=== PATIENT | male | born 1955 | race Caucasian/White ===

== ENCOUNTER 2024-07-18 15:43 | Emergency (ER) | payer MEDICARE, OTHER, SELFPAY ==
[2024-07-18 15:59] VITALS: BP 135/98
[2024-07-18 16:21] LABS: % Basophils 0.2 % (0-2); % Eosinophils 0.4 % (0-6); % Immature Granulocytes 0.2 % (0-0.5); % Lymphocytes 9.1 % (20.5-51.1); % Monocytes 6.8 % (1.7-9.3); % Neutrophils 83.3 % (42.2-75.2); Absolute Eosinophils 0.1 10^3/uL (0-0.7); Absolute Lymphocytes 1.5 10^3/uL (1.2-3.4); Absolute Monocytes 1.1 10^3/uL (0.1-0.6); Absolute Neutrophils 13.6 10^3/uL (1.4-6.5); Hematocrit 36.6 % (39.0-52.0); Mean Corp Hgb Conc. 35.5 g/dL (33.0-37.0); Mean Corpuscular Volume 87.1 fL (80.0-94.0); Mean Platelet Volume 8.5 fL (7.4-10.4); Nucleated Red Blood Cells % 0 % (-); Platelet Count 250 10^3/uL (130-400); Red Cell Dist. Width 13.6 % (11.5-14.5); White Blood Cell Count 16.3 10^3/uL (4.8-10.8)
[2024-07-18 16:43] LABS: ALT (SGPT) 44 U/L (0-50); AST (SGOT) 41 U/L (17-59); Albumin 4.7 g/dl (3.5-5.0); Alkaline Phosphatase 88 U/L (38-126); Blood Urea Nitrogen 20 mg/dl (9-20); Calcium 9.3 mg/dl (8.4-10.2); Carbon Dioxide 27 mmol/L (22-30); Chloride 97 mmol/L (98-107); Glucose 114 mg/dl (70-99); Potassium 4.4 mmol/L (3.5-5.1); Sodium 137 mmol/L (135-145); Total Bilirubin 0.9 mg/dl (0.2-1.3); Total Protein 7.1 g/dl (6.3-8.2); eGFR > 60.00
--- NOTE | 2024-07-18 17:45 | ED.GENMED ---
History of Present Illness
General
Chief Complaint: Abdominal Symptoms
Source: patient
Time Seen by Provider: 07/18/24 17:31
History of Present Illness
History of Present Illness:
69-year-old male presents to the emergency room complaining of abdominal fullness, constipation and today inability to pass urine. Patient first noticed some difficulty passing stool 2 to 3 days ago. He noted today that he could not pass urine at
all. He feels significant fullness in his lower abdomen. When asked about how he urinates normally the patient does endorse issues with starting his urinary stream. He does not always feel fully relieved when he urinates. Patient attempted to
give himself an enema at home but felt like most of the enema ended up on the floor. He also took a stool softener. Patient has not had any nausea or vomiting. He denies any previous abdominal operations.
Past History
Past History
ED Past Medical History: None
ED Past Surgical History: None
Social History
Living: with family
Phy Exam
Physical Exam
Physical Exam:
General: Awake, Alert, Oriented X3. No acute distress.
Vitals: unremarkable
Head: Atraumatic
Eyes: Pupils equal, EOMI
Throat: Airway intact, no exudates
Neck: Trachea midline
Lungs: Clear and equal b/l
Heart: Regular rate, no murmurs
Abd: Soft, palpable bladder with significant lower abdominal distention, No pulsatile mass
Neuro: Nonfocal
Skin: Warm, dry, no rash
Extremities: pulses equal b/l, no edema
Course
Orders/Labs/Results
Orders:
Orders
07/18/24 16:15
Complete Blood Count/With Diff Urgent
Comprehensive Metabolic Panel Urgent
07/18/24 17:55
Soliman Placement- Treatment ONCE
Reason for insertion: Outlet obstruction
07/18/24 17:56
Urinalysis Reflex To Culture Urgent
Date Specimen was Collected: 07/18/24
Time Specimen was Collected: 17:55
07/18/24 22:29
Lidocaine 2% [Lidocaine Uro-Jet 2%] 1 syringe .ROUTE .STK-MED ONE
07/18/24 22:31
Lidocaine 2% [Lidocaine Uro-Jet 2%] 1 syringe TOPICAL NOW STA
Abnormal Lab Results
07/18/24
16:15
WBC 16.3 H 10^3/uL
(4.8-10.8)
RBC 4.20 L 10^6/uL
(4.70-6.10)
Hct 36.6 L %
(39.0-52.0)
Absolute Neuts (auto) 13.6 H 10^3/uL
(1.4-6.5)
Absolute Monos (auto) 1.1 H 10^3/uL
(0.1-0.6)
Neutrophils % 83.3 H %
(42.2-75.2)
Lymphocytes % 9.1 L %
(20.5-51.1)
Chloride 97 L mmol/L
(98-107)
Glucose 114 H mg/dl
(70-99)
07/18/24 16:15
07/18/24 16:15
Vital Signs
Initial and Last Documented VS:
Initial Vital Signs
Temp Pulse Resp BP Pulse Ox
98.8 F 97 18 135/98 99
07/18/24 15:59 07/18/24 15:59 07/18/24 15:59 07/18/24 15:59 07/18/24 15:59
Last Documented Vital Signs
Temp Pulse Resp BP Pulse Ox
98.8 F 81 16 144/72 100
07/18/24 15:59 07/18/24 18:05 07/18/24 18:05 07/18/24 18:05 07/18/24 18:05
MDM/Problems Addressed
Differential Diagnosis Includes:
Constipation, bladder outlet obstruction direction with sigmoid colon be mechanically obstructed by the bladder, mass
MDM/Problems Addressed:
Bladder scan shows that the patient has a significant amount of retained urine. Soliman catheter placed and about 2 L of urine were evidently obtained. Patient did have some hematuria immediately following catheter placement. This began to clear
and at the time of discharge his urine was just a light pink. He did not pass any clots. He was irrigated by hand and did not have any clots. After his bladder outlet obstruction was relieved the patient was able to defecate. His abdominal
discomfort is now completely resolved. Will start the patient on Flomax. Talk to follow with urology.
*Pulse Oximetry
Patient hypoxic: no
*Critical Care Note
Total Time (30-74mins, 75-104mins- exclusive of procedures): Not Applicable
ED Attending Note
-
Portions of this chart may have been created with voice recognition software.� Occasional wrong word or��sound alike� substitutions may have occurred due to the inherent limitations of voice recognition software.
Discharge Plan
Departure
Patient Disposition: Home (Routine Discharge)
Date of Disposition: 07/18/24
Time of Disposition: 21:22
Patient with high blood pressure during this ER visit?: Yes
Condition: Good
Discharge Problem:
Bladder outlet obstruction, Hematuria, Constipation
Instructions: Constipation, Adult (DC), How to Care for Your Soliman Catheter, Male, Blood in Urine (Hematuria), Adult ED
Prescriptions:
New
tamsulosin [Flomax] 0.4 mg capsule
0.4 mg PO HS Qty: 30 0RF
Referrals:
Maxime Bowles MD [Active] -
Mack Francisco MD [Family Provider] -
Activity Restrictions/Additional Instructions:
Call Dr. Bowles's office tomorrow for an appointment.
Interventions
Interventions:
*Risk Screen - Suicide Last Done: 07/18/24 17:36
*General Assessment Last Done: 07/18/24 16:03
*Neglect/Abuse Screening Last Done: 07/18/24 17:36
*ED COVID-19 Vaccine History Last Done: 07/18/24 17:35
VT-Dkltwz-Mchtoeblwn Assessment Last Done: 07/18/24 17:36
Discharge Date and Time
Print Language: [place] IRISH
[2024-07-18 18:03] LABS: Urine Albumin Negative (Neg - Trace); Urine Bilirubin Negative (Negative); Urine Character Clear (Clear); Urine Color Yellow; Urine Glucose Negative (Negative); Urine Ketone Negative (Negative); Urine Leukocyte Negative (Negative); Urine Nitrite Negative (Negative); Urine Occult Blood Negative (Negative); Urine Specific Gravity 1.015 (<1.030); Urine Urobilinogen Negative (Neg - 1+); Urine pH 6.5 (5.0-9.0)
[2024-07-18 18:05] VITALS: BP 144/72
[2024-07-18] MEDS: LIDOCAINE URO-JET 2% 1 SYRINGE TOPICAL (22:32)
[2024-07-18 22:40] VITALS: BP 124/70
== END 2024-07-18 22:40 | disposition home or self-care (01) ==
LOC: EMR 15:43
PROVIDERS: Emergency Medicine; EMERGENCY PHYSICIAN Emergency Medicine; FAMILY PHYSICIAN Internal Medicine
DX: K59.00 Constipation, unspecified (principal); N32.0 Bladder-neck obstruction; R31.9 Hematuria, unspecified; R03.0 Elevated blood-pressure reading, without diagnosis of hypertension
CPT/HCPCS: 99283; 51702; 80053; 81003; 85025

== ENCOUNTER 2024-08-23 06:24 | Day surgery (SDC) | payer MEDICARE, OTHER, SELFPAY ==
[2024-08-23] VITALS (14 sets, daily range): BP systolic 120–160; BP diastolic 70–84; BMI 26.5
--- NOTE | 2024-08-23 18:19 | W.IMMPOSTOP ---
Surgical Immed Post Op Note
-
Primary Surgeon: Kailafer
Assisting Surgeon:-
Pre-op Diagnosis: BPH, urinary retention
Post-op Diagnosis: same
Procedure Performed: TURP
Anesthesia Type: general
Specimen / Cultures: prostate chips
Estimated Blood Loss: 5cc
Complications: none
Operative Findings: large prostate with intravesical median lobe
--- NOTE | 2024-08-23 19:45 | PTCARENOTE ---
Patient arrived from PACU, s/p TURP to South via bed. CBI infusing per order, troy with light pink tinged urine. Patient AAOx3, very pleasant, oriented to new room and plan of care along with , who was at bedside. Assessment on going.
[2024-08-23] MEDS: NSS 1000 IV (19:59)
[2024-08-23] MEDS: PERCOCET 5/325 1 TABLET PO (20:00)
[2024-08-23] MEDS: BUSPAR 15 MG PO (20:42)
[2024-08-23] MEDS: FLOMAX 0.4 MG PO (21:47)
[2024-08-23] MEDS: LIPITOR 40 MG PO (21:47)
[2024-08-23] MEDS: REMERON 15 MG PO (21:48)
[2024-08-24 03:15] VITALS: BP 133/72
[2024-08-24] MEDS: NSS 1000 IV (03:55)
[2024-08-24 07:04] LABS: Hematocrit 33.1 % (39.0-52.0); Hemoglobin 11.2 g/dL (13.0-18.0)
[2024-08-24 07:15] VITALS: BP 134/66
[2024-08-24 08:01] LABS: Blood Urea Nitrogen 13 mg/dl (9-20); Calcium 8.6 mg/dl (8.4-10.2); Carbon Dioxide 25 mmol/L (22-30); Chloride 109 mmol/L (98-107); Estimated Creatinine Clearance 106 ml/min; Glucose 119 mg/dl (70-99); Potassium 4.2 mmol/L (3.5-5.1); Sodium 143 mmol/L (135-145); eGFR > 60.00
[2024-08-24] MEDS: DETROL LA 4 MG PO (09:13)
[2024-08-24] MEDS: BUSPAR 7.5 MG PO (09:13)
[2024-08-24] MEDS: ORETIC 25 MG PO (09:14)
[2024-08-24] MEDS: WELLBUTRIN SR (12 hour sustained release) 200 MG PO (09:14)
[2024-08-24] MEDS: COZAAR 100 MG PO (09:14)
[2024-08-24] MEDS: PROTONIX 20 MG PO (09:14)
[2024-08-24] MEDS: TYLENOL 650 MG PO ×3 (09:21→22:36)
--- NOTE | 2024-08-24 10:29 | W.PN.URO.CBU ---
Today's Communication / Plan
-
resume cbi
Assessment / Plan
-
s/p TURP
cath irrigated- cbi restarted
try again off cbi tomorrow
plan to discharge with cath when urine clear
Diagnosis
-
Date of Service: August 24, 2024
-
Patient Diagnosis:
BPH and retention
Post Op Day:
TURP 08/23
Subjective
-
pt feels ok
cbi stopped at 6am- urine now bloody with some clots
cath irrigated and cbi restarted
hgb stable
Objective
-
Vital Signs
Temp Pulse Resp BP Pulse Ox
97.7 F 80 14 134/66 98
08/24/24 07:15 08/24/24 07:15 08/24/24 07:15 08/24/24 07:15 08/24/24 07:15
Intake and Output
08/23/24 08/24/24 08/25/24
06:59 06:59 06:59
Intake Total 1500 / 1500
Output Total 1500 / 1500
Balance 0 / 0
Intake:
IV fluids (Total) 1500 / 1500
NSS 0 / 0
Output:
True Urine Output from CBI 1500 / 1500
Laboratory Results
08/24/24 06:24
08/24/24 06:24
Review of Systems
-
Constitutional: No Symptoms
Respiratory: No Symptoms
Cardiac: No Symptoms
Abdomen/GI: No Symptoms
: Other (troy)
Physical Exam
-
General - no acute distress
Abdomen - soft, non-tender
Genitalia - [address]
[2024-08-24 11:06] VITALS: BP 134/68
--- NOTE | 2024-08-24 14:27 | CM ---
CM reviewed chart. Patient is here s/p TURP. Patient lives home with his . It is a ML home with 8 LUIS. He is independent. Drives. 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 No +SDOHs to report.
ANTICIPATED DISCHARGE PLAN: Discharge home to , when medically and surgically cleared.
[2024-08-24 15:15] VITALS: BP 116/63
[2024-08-24] MEDS: BUSPAR 15 MG PO (18:34)
[2024-08-24] MEDS: LIPITOR 40 MG PO (22:36)
[2024-08-24] MEDS: FLOMAX 0.4 MG PO (22:36)
[2024-08-24] MEDS: REMERON 15 MG PO (22:36)
[2024-08-25] VITALS: BP 124/69
[2024-08-25 07:20] VITALS: BP 136/76
--- NOTE | 2024-08-25 07:52 | W.PN.UPDATE ---
Update Note
Progress Note Update
pt stable
cbi off since midnight- urine yellow
for discharge today
--- NOTE | 2024-08-25 07:53 | W.DS.TRANS ---
DC Summary - [employer]
-
Discharge Instructions:
Sleep Apnea Risk Intermediate
Discharge Diagnosis/Procedures BPH
Transurethral resection of prostate
Diet No restrictions
Activity No strenuous activity
Additional Activity avoid lifting, straining, strenuous activity for
2 weeks
[address] Restrictions As prior to admission
Bathing Restrictions OK to Shower
Wound Care Continue routine catheter care at home
Take regular OTC pain medications as needed such
as tylenol and ibuprofen as needed
For urinary burning after the catheter is
removed, you can take phenazopyridine, available
at your pharmacy (common brand name is AZO)
Continue taking tamsulosin daily
You may have blood in urine off and on during
the healing period
Stay well hydrated to avoid clotting
The office will call to schedule catheter
removal next week
Follow up with Dr. Bowles in 3-4 weeks
Please call with any problems you encounter in
the meantime
Instructions:
Stand-Alone Forms:
Changes to Home Medications: No
Discharge Medications:
DC Medications w/original date entered in [employer]
tamsulosin 0.4 mg capsule (Flomax) 0.4 mg PO HS #30 caps 07/18/24
Centrum Older Adults 1 dose PO DAILY Supplement 08/20/24
atorvastatin 40 mg tablet 40 mg PO HS High Cholesterol 08/20/24
bupropion HCl 200 mg tablet,12 hr sustained-release 200 mg PO Daily Depression 08/20/24
buspirone 30 mg tablet 30 mg PO BID anxiety 08/20/24
hydrochlorothiazide 25 mg tablet 25 mg PO DAILY Blood Pressure 08/20/24
ibuprofen 200 mg tablet 400 mg PO Q6H PRN pain 08/20/24
lansoprazole 15 mg capsule,delayed release 15 mg PO DAILY Gastrointestinal Issue 08/20/24
losartan 100 mg tablet 100 mg PO DAILY Blood Pressure 08/20/24
mirtazapine 15 mg tablet 15 mg PO HS Depression 08/20/24
Home Medication Changes
Pending Results: No
[2024-08-25] MEDS: BUSPAR 7.5 MG PO (08:18)
[2024-08-25] MEDS: WELLBUTRIN SR (12 hour sustained release) 200 MG PO (08:19)
[2024-08-25] MEDS: ORETIC 25 MG PO (08:19)
[2024-08-25] MEDS: PROTONIX 20 MG PO (08:19)
[2024-08-25] MEDS: COZAAR 100 MG PO (08:19)
--- NOTE | 2024-08-25 10:04 | CM ---
Pt for discharge today
to transport home
Plan - home no needs
[2024-08-25 11:00] VITALS: BP 157/81
== END 2024-08-25 11:19 | disposition home or self-care (01) ==
LOC: SDS 06:24
PROVIDERS: ATTENDING PHYSICIAN Urology
DX: N40.1 Benign prostatic hyperplasia with lower urinary tract symptoms (principal); R33.8 Other retention of urine
CPT/HCPCS: 52601; 88305; 80048; 85014; 85018; 93005